=== PATIENT | male | born 1965 | race Caucasian/White ===

== ENCOUNTER → 2021-09-03 | Outpatient (CLI) | payer OTHER ==
--- NOTE | 2021-09-03 11:01 | CT ---
EXAMINATION TYPE: CT brain w con DATE OF EXAM: 09/03/2021 COMPARISON: None INDICATION: Left sided headache with occasional left hand tingling. DLP: 1081.6 mGycm, Automated exposure control for dose reduction was used. CONTRAST: [id number] of the brain is performed utilizing 3 mm thick sections through the posterior fossa and 3 mm thick sections through the remaining calvarium. Study is performed within 24 hours of arrival to the [facility]. No abnormal hyperdensity is present to suggest an acute intracranial hemorrhage. No mass lesion is evident. No acute infarcts are evident. No suspicious focal enhancement is evident. Ventricles and sulci are appropriate for the patient age. Paranasal sinuses and mastoid air cells within the [id number] are clear. There is a 3.3 x 1.8 cm mass right frontal vertex which contains some internal calcification. Additi onal smaller nodule is near the anterior right parietal region measuring 1.4 cm. The underlying monica rium appears intact. IMPRESSIONS: 1. No suspicious acute intracranial abnormality. 2. Right subcutaneous nodules and masses discussed above.
== END | disposition home or self-care (01) ==
LOC: RADCTMAIN 08:43
PROVIDERS: ATTEND Family Medicine
DX: R51.9 Headache, unspecified (principal); F45.8 Other somatoform disorders
CPT/HCPCS: 70460; Q9967